=== PATIENT | male | born 1955 | race Caucasian/White ===

== ENCOUNTER 2016-12-11 16:09 | Outpatient (CLI) | payer BC | END 2016-12-11 16:10 | disposition home or self-care (01) | LOC: LABBT 16:09 | PROVIDERS: ATTEND Orthopaedic Surgery | DX: Z01.818 Encounter for other preprocedural examination (principal); G56.01 Carpal tunnel syndrome, right upper limb ==

== ENCOUNTER 2016-12-15 05:54 | Day surgery (SDC) | payer BC ==
[2016-12-11 16:20] VITALS: BMI 39.3
[2016-12-15] MEDS ORDERED: Lidocaine 2% w/Epinephrine 1:200K 20 ML VIAL ONE (06:25)
[2016-12-15] MEDS ORDERED: Lidocaine 1% (PF) 30 ML VIAL ONE (06:25)
[2016-12-15] MEDS ORDERED: Midazolam HCl 2 mg/2 ml Vial ONE (07:27)
[2016-12-15] MEDS ORDERED: Fentanyl 100 MCG/2 ML VIAL ONE (07:27)
[2016-12-15] MEDS ORDERED: Propofol 200 MG/20 ML VIAL ONE (07:35)
[2016-12-15] MEDS ORDERED: Lidocaine 2% PF 10 ML AMP (For Epidural Use) ONE (07:35)
--- NOTE | 2016-12-15 08:41 | OP ---
PREOPERATIVE DIAGNOSIS: Carpal tunnel syndrome, right. POSTOPERATIVE DIAGNOSIS: Carpal tunnel syndrome, right. SURGEON: Delmer Fish M.D. ANESTHESIA: TIVA local. BLOOD LOSS: Minimal. DRAINS: None. COMPLICATIONS: None. PROCEDURE IN DETAIL: After appropriate consent was obtained, the patient was taken to the operating room where TIVA anesthesia was induced. The arm was prepped and draped in the sterile fashion. Th e arm was exsanguinated. The tourniquet was inflated to 250 mmHg. A longitudinal incision was made . Hemostasis obtained. Dissection was carried down to the transverse carpal ligament. The transve rse carpal ligament was incised. Hemostat was placed deep in the transverse carpal ligament. The k nife was used to cut down unto the ligament and hemostat. Care was taken to protect the contents of the carpal canal. Attention was then turned proximally. Metzenbaum scissors were used to release the carpal ligament into the forearm fascia. The carpal tunnel was palpated. There were no masses. The tourniquet was released. Hemostasis was obtained. Copious irrigation performed. The skin wa s closed with 4-0 Nylon. A sterile dressing was applied and the patient was placed in a splint. Th ere are no complications.
== END 2016-12-15 09:45 | disposition home or self-care (01) ==
LOC: SDC 05:54
PROVIDERS: ATTEND Orthopaedic Surgery
PROC: 01N50ZZ Release Median Nerve, Open Approach (ICD-10-PCS; principal; 2016-12-15)
DX: G56.01 Carpal tunnel syndrome, right upper limb (principal); I10 Essential (primary) hypertension; K21.9 Gastro-esophageal reflux disease without esophagitis; E78.00 Pure hypercholesterolemia, unspecified; S74.01XA Injury of sciatic nerve at hip and thigh level, right leg, initial encounter; I25.10 Atherosclerotic heart disease of native coronary artery without angina pectoris; M19.90 Unspecified osteoarthritis, unspecified site; Z79.2 Long term (current) use of antibiotics; Z79.82 Long term (current) use of aspirin; Z79.899 Other long term (current) drug therapy; Z88.5 Allergy status to narcotic agent; Z88.8 Allergy status to other drugs, medicaments and biological substances; Z96.652 Presence of left artificial knee joint; Z96.641 Presence of right artificial hip joint; Z95.818 Presence of other cardiac implants and grafts; Z98.890 Other specified postprocedural states; Z87.891 Personal history of nicotine dependence; Z82.3 Family history of stroke
CPT/HCPCS: J2001; J2250; J2704; J3010

== ENCOUNTER 2018-05-22 11:06 | Outpatient (CLI) | payer BC ==
--- NOTE | 2018-05-22 14:45 | MRI ---
FMR of the right shoulder without contrast INDICATION: Right shoulder pain TECHNIQUE: Sagittal T1, axial and coronal PD fat sat, sagittal and coronal T2 fat sat images were obt ained of the right shoulder. COMPARISON: None FINDINGS: Motion artifact limits image detail. Rotator cuff: There is a complete tear of the subscapularis and supraspinatus. There is a full-thickn ess partial width tear involving the anterior mid infraspinatus at the insertion. There is retraction of the tendons to the level of the glenohumeral joint. There is mild supraspinatus, infraspinatus mu scular atrophy. There is moderate subscapularis muscular atrophy. Glenohumeral joint: There is severe chondral thinning involving the superior aspect of the glenoid ar ticular surface with associated subchondral cystlike abnormality. Glenoid labrum: There is degenerative fraying of the superior glenoid labrum. The inferior glenohumer al labral ligamentous complex appears intact. Biceps tendon and biceps anchor: The intra-articular long head of the biceps tendon is not visualized within the bicipital groove nor within the joint space likely related to full-thickness disruption d istal retraction. There is prominent degenerative fraying of the biceps anchor. Acromion clavicular joint: There is moderate AC joint osteoarthrosis. Subacromial subdeltoid space: There is moderate fluid in the subacromial subdeltoid space. Axillary region: No lymphadenopathy Surrounding left shoulder musculature: The visualized deltoid, trapezius, proximal triceps and pector gely major muscle appears within normal limits. IMPRESSION: 1. Massive rotator cuff tear of the right shoulder with moderate glenohumeral rotator cuff osteoarthr opathy. There is moderate subscapularis, mild supraspinatus and infraspinatus muscular atrophy. 2. Complete disruption of the long head of the biceps tendon with distal retraction. 3. Degenerative fraying of the superior glenoid labrum and biceps anchor complex 4. Moderate AC joint osteoarthrosis
== END 2018-05-22 11:07 | disposition home or self-care (01) ==
LOC: BICMRI 11:06
PROVIDERS: ATTEND Orthopaedic Surgery
DX: M25.511 Pain in right shoulder (principal); M75.101 Unspecified rotator cuff tear or rupture of right shoulder, not specified as traumatic; M19.011 Primary osteoarthritis, right shoulder; M62.511 Muscle wasting and atrophy, not elsewhere classified, right shoulder

== ENCOUNTER 2018-12-26 08:13 | Day surgery (SDC) | payer BC ==
[2018-12-25 11:16] VITALS: BMI 38.0
[2018-12-26 09:01] LABS: #Basophils 0.1 thou/uL (0.0-0.2); #Eosinphils 0.1 thou/uL (0.0-0.7); #Lymphocytes 1.6 thou/uL (1.20-3.40); #Monocytes 0.7 thou/uL (0.11-0.59); #Neutrophils 4.6 thou/uL (1.40-6.50); %Basophils 1.2 % (0.0-1.0); %Eosinophils 1.8 % (0.0-10.0); %Lymphocytes 22.5 % (21.0-51.0); %Neutrophils 64.5 % (42.0-75.0); Hemoglobin 16.4 g/dL (14.0-18.0); Mean Corpuscular Hemoglobin 30.9 pg (27.0-31.0); Mean Corpuscular Volume 90.9 fL (78.0-98.0); Mean Platelet Volume 7.5 fL (7.4-10.4); Platelet Count 190 thou/uL (130-400); RBC Distribution Width 13.3 % (11.5-14.5); White Blood Cell (WBC) Count 7.1 thou/uL (4.8-10.8)
[2018-12-26] MEDS ORDERED: Midazolam HCl 2 mg/2 ml Vial ONE ×2 (09:05→10:24)
[2018-12-26] MEDS ORDERED: Fentanyl 100 MCG/2 ML VIAL ONE ×2 (09:05→10:18)
[2018-12-26] MEDS ORDERED: Scopolamine 1.5 mg/72 hour Patch ONE (09:19)
[2018-12-26 09:20] LABS: Anion Gap 15 mmol/L (10-20); BUN (Urea Nitrogen) 18 mg/dL (8.4-25.7); Calc. Creatinine Clearance 121 mL/min (70-130); Calcium 9.3 mg/dL (7.8-10.44); Carbon Dioxide 22 mmol/L (23-31); Chloride 107 mmol/L (98-107); Estimated GFR-MDRD Greater than 90; Glucose 98 mg/dL (80-115); Potassium 4.9 mmol/L (3.5-5.1); Sodium 139 mmol/L (136-145)
[2018-12-26] MEDS ORDERED: Ropivacaine 0.2% 550 ML 550 ML NERVE BLCK SCH (10:03)
[2018-12-26] MEDS ORDERED: Ondansetron PF 4 MG/2 ML Vial IVP PRN (10:03)
[2018-12-26] MEDS ORDERED: Promethazine HCl 25 MG/ML VIAL IM PRN (10:03)
[2018-12-26] MEDS ORDERED: traMADol HCl 50 MG TAB PO PRN ×2 (10:03)
[2018-12-26] MEDS ORDERED: HYDROcodone/Acetaminophen 5/325 mg Tablet PO PRN ×2 (10:03)
[2018-12-26] MEDS ORDERED: Zolpidem Tartrate 5 MG TAB PO PRN (10:03)
[2018-12-26] MEDS ORDERED: Ropivacaine 0.2% HCl/PF (40 MG/20 ML VIAL) ONE (10:17)
[2018-12-26] MEDS ORDERED: Bupivacaine HCl 0.5%/Epinephrine 1:200,000/PF 30 ml Vial ONE (10:17)
[2018-12-26] MEDS ORDERED: SUGAMMADEX SODIUM 200 MG/2 ML VIAL ONE (10:18)
[2018-12-26] MEDS ORDERED: Lidocaine 1% PF 5 ML VIAL ONE (11:48)
[2018-12-26] MEDS ORDERED: Dexamethasone 20 MG/5 ML VIAL ONE (11:48)
[2018-12-26] MEDS ORDERED: Ondansetron PF 4 MG/2 ML Vial ONE (11:48)
[2018-12-26] MEDS ORDERED: PROPOFOL 200 MG/20 ML VIAL ONE (11:48)
[2018-12-26] MEDS ORDERED: Rocuronium Bromide 10 MG/ML (10ML VIAL) ONE (11:48)
[2018-12-26] MEDS ORDERED: Esmolol 100 MG/10 ML VIAL ONE (11:48)
[2018-12-26] MEDS ORDERED: Succinylcholine Chloride 20 MG/ML 10 ml SYRINGE FS ONE (11:48)
[2018-12-26] MEDS ORDERED: Albuterol Sulfate 1.25 MG/3 ML NEB ONE (12:19)
--- NOTE | 2018-12-26 16:47 | EKG ---
Test Reason : PREOP Blood Pressure : / mmHG Vent. Rate : 057 BPM Atrial Rate : 057 BPM P-R Int : 208 ms QRS Dur : 088 ms QT Int : 404 ms P-R-T Axes : 033 059 094 degrees QTc Int : 393 ms Sinus bradycardia Low voltage QRS Nonspecific T wave abnormality Abnormal ECG Confirmed by ALANIS PIERRE ([id number]) on 12/26/2018 4:47:20 PM Referred By: LUCY Confirmed By:ALANIS PIERRE
--- NOTE | 2018-12-27 14:44 | OP ---
DATE OF PROCEDURE: 12/26/2018 PREOPERATIVE DIAGNOSIS: Massive rotator cuff tear, right shoulder. POSTOPERATIVE DIAGNOSIS: Right shoulder open rotator cuff repair. PROCEDURE PERFORMED: Right shoulder open rotator cuff repair. ANESTHESIA: General. BLOOD LOSS: Minimal. SPECIMEN: None. DRAINS: None. COMPLICATION: None. PROCEDURE IN DETAIL: The patient taken to the operating room where general anesthesia induced, placed in a beach chair position. I made an anterior deltoid splitting approach acromion. A thick cup of tissue was taken with deltoid, anterior inferior acromioplasty was performed. The rotator cuff was mobilized. This was a massive tear. I used a Dacron suture to do a convergence type stitch and used additional 3 anchors to repair tendon down to bone. This was quite a bit of a stretch. There was no identifiable biceps tendon and this was not repaired at the time. Irrigation performed. Deltoid was repaired with #1 Ethibond. Subcu closed with 2-0 Vicryl. Skin was closed with cary. Job ID: [id number]
== END 2018-12-26 15:50 | disposition home or self-care (01) ==
LOC: SDC 08:13
PROVIDERS: ATTEND Orthopaedic Surgery
PROC: 0LQ10ZZ Repair Right Shoulder Tendon, Open Approach (ICD-10-PCS; principal; 2018-12-26)
PROC: 0PB50ZZ Excision of Right Scapula, Open Approach (ICD-10-PCS; principal; 2018-12-26)
PROC: 3E0T3BZ Introduction of Anesthetic Agent into Peripheral Nerves and Plexi, Percutaneous Approach (ICD-10-PCS; principal; 2018-12-26)
DX: M75.101 Unspecified rotator cuff tear or rupture of right shoulder, not specified as traumatic (principal); G89.18 Other acute postprocedural pain; K21.9 Gastro-esophageal reflux disease without esophagitis; I25.10 Atherosclerotic heart disease of native coronary artery without angina pectoris; E78.5 Hyperlipidemia, unspecified; I11.9 Hypertensive heart disease without heart failure; Z87.891 Personal history of nicotine dependence; Z79.82 Long term (current) use of aspirin; Z79.899 Other long term (current) drug therapy; Z88.5 Allergy status to narcotic agent; Z96.642 Presence of left artificial hip joint; Z96.652 Presence of left artificial knee joint; Z98.890 Other specified postprocedural states
CPT/HCPCS: 80048; 85025; 93005; 93010; A4306; C1713; J0670; J0690; J1100; J2001; J2250; J2405; J2704; J2795; J3010

== ENCOUNTER 2021-07-12 14:21 | Outpatient (CLI) | payer BC | END 2021-07-12 14:22 | disposition home or self-care (01) | LOC: RAD 14:21 | PROVIDERS: ATTEND Internal Medicine Critical Care Medicine | DX: R06.00 Dyspnea, unspecified (principal); I70.0 Atherosclerosis of aorta; R91.8 Other nonspecific abnormal finding of lung field; Z98.890 Other specified postprocedural states | CPT/HCPCS: 71046 ==